=== PATIENT | male | born 1965 | race Caucasian/White ===

== ENCOUNTER 2017-06-20 02:31 | Emergency (ER) | payer BC ==
[2017-06-20] MEDS ORDERED: Nicotine Inhaler* 10 MG AMP ONE ×2 (03:06→18:37)
[2017-06-20] MEDS ORDERED: Mouth Piece, Nicotine* 1 EACH CARTRIDGE ONE (03:06)
[2017-06-20] MEDS ORDERED: Nicotine Inhaler* 10 MG AMP INH ONE (03:07)
[2017-06-20] MEDS ORDERED: Mouth Piece, Nicotine* 1 EACH CARTRIDGE INH PRN (03:07)
--- NOTE | 2017-06-20 03:27 | ED ---
Sukhdeep Veloz Rebecca, scribed for Floyd Hernandez MD on 06/20/17 at 0256 . Psychiatric Complaint - HPI Summary HPI Summary: Pt is a 52 y/o M [employer] who presents to ED for a voluntary MHE. When asked why he presents tonight, he reports "because I had to." he then states he is here because "because I'm drunk and pissed off and somebody called the face painter." According to nurse's triage, the pt posted SIs on Facebook and voiced them to his mother. - History Of Current Complaint Chief Complaint: EDMentalHealth Time Seen by Provider: 06/20/17 02:47 Hx Obtained From: Patient, Medical Records Onset/Duration: Still Present Character: Angry Aggravating Factor(s): Nothing Alleviating Factor(s): Nothing Associated Signs And Symptoms: Positive: Negative Has Suicidal: Reports: Thoughts - Allergies/Home Medications Allergies/Adverse Reactions: Allergies Allergy/AdvReac Type Severity Reaction Status Date / Time No Known Allergies Allergy Verified 11/16/13 07:44 Home Medications: Home Medications Ibuprofen TAB* [Motrin TAB* 800 MG] 800 mg PO Q6H PRN 06/20/17 [History Confirmed 06/20/17] PMH/Surg Hx/FS Hx/Imm Hx Cardiovascular History: Denies: Hx Pacemaker/ICD GI History: Reports: Hx Ulcer - Hx OF , Tx WITH MEDS, OK NOW Musculoskeletal History: Reports: Hx Arthritis - LEFT KNEE, Hx Bursitis Sensory History: Denies: Hx Hearing Aid Psychiatric History: Denies: Hx Panic Disorder - Surgical History Surgery Procedure, Year, and Place: 1998 LT FOOT (SCREWS) [facility]. 2004 PLATE IN RT ANKLE [facility]. 1991 LT INDEX FINGER RE ATTACHMENT [facility]. 1996 VASECTOMY [facility] Hx Anesthesia Reactions: No Infectious Disease History: Denies: Traveled Outside the [place] in Last 30 Days - Family History Known Family History: Positive: Diabetes - Social History Substance Use Type: Reports: None Review of Systems Negative: Fever Positive: Other - SIs All Other Systems Reviewed And Are Negative: Yes Physical Exam Triage Information Reviewed: Yes Vital Signs On Initial Exam: Initial Vitals Temp Pulse Resp BP Pulse Ox 97.6 F 110 16 173/105 99 06/20/17 02:35 06/20/17 02:35 06/20/17 02:35 06/20/17 02:35 06/20/17 02:35 Vital Signs Reviewed: Yes Appearance: Positive: Well-Appearing, No Pain Distress Skin: Positive: Warm Head/Face: Positive: Normal Head/Face Inspection ENT: Positive: Hearing grossly normal Neck: Positive: Supple Respiratory/Lung Sounds: Positive: Breath Sounds Present Cardiovascular: Positive: RRR Abdomen Description: Positive: Nontender, Soft Bowel Sounds: Positive: Present Musculoskeletal: Positive: Strength/ROM Intact Neurological: Positive: Alert, Oriented to Person Place, Time Diagnostics - Vital Signs Vital Signs Temp Pulse Resp BP Pulse Ox 06/20/17 02:35 97.6 F 110 16 173/105 99 - Laboratory Result Diagrams: 06/20/17 03:14 06/20/17 03:14 Lab Statement: Any lab studies that have been ordered have been reviewed, and results considered in the medical decision making process. Course/Dx - Course Assessment/Plan: Pt is a 52 y/o M B[employer] who presents to ED for a voluntary MHE. When asked why he presents tonight, he reports "because I had to." he then states he is here because "because I'm drunk and pissed off and somebody called the face painter." According to nurse's triage, the pt posted SIs on Facebook and voiced them to his mother. Serum alcohol of 320. Pt will be signed out, pending dispositiong, awaiting EtOH metabolism and medical clearance for MHE. Elevated BP noted and advised to f/u with PCP. - Differential Dx/Clinical Impression Provider Diagnosis: Alcohol intoxication Discharge - Discharge Plan Condition: Stable Disposition: OTHER Discharge Disposition Comment: Pt will be signed out, pending dispo, awaiting MHE Referrals: Vincent Perez MD [Primary Care Provider] - The documentation as recorded by the Sukhdeep davalos Rebecca accurately reflects the service I personally performed and the decisions made by me, Floyd Hernandez MD.
[2017-06-20 04:05] LABS: Hematocrit 49 % (42-52); Hemoglobin 16.9 g/dl (14.0-18.0); Mean Corpuscular HGB Conc 34 g/dl (31-36); Mean Corpuscular Hemoglobin 32 pg (27-31); Mean Corpuscular Volume 94 fL (80-94); Mean Platelet Volume 8 um3 (7.4-10.4); Red Blood Count 5.25 10^6/ul (4.0-5.4); Red Cell Distribution Width 14 % (10.5-15); White Blood Count 9.5 10^3/ul (3.5-10.8)
[2017-06-20 04:08] LABS: Urine Bacteria Absent (Absent); Urine Bilirubin Negative (Negative); Urine Glucose 2+(150 mg/dL) (Negative); Urine Nitrite Negative (Negative)
[2017-06-20 04:15] LABS: ALT 17 U/L (7-52); AST 22 U/L (13-39); Albumin 4.4 g/dL (3.2-5.2); Alkaline Phosphatase 62 U/L (34-104); Anion Gap 8 mmol/L (2-11); Blood Urea Nitrogen 3 mg/dL (6-24); CO2 Carbon Dioxide 23 mmol/L (22-32); Calcium 8.6 mg/dL (8.6-10.3); Chloride 97 mmol/L (101-111); EGFR African American 140.6 (>60); EGFR Non-African American 109.4 (>60); Globulin 2.9 g/dL (2-4); Glucose 110 mg/dL (70-100); Potassium 4.1 mmol/L (3.5-5.0); Sodium 128 mmol/L (133-145); Total Protein 7.3 g/dL (6.4-8.9)
[2017-06-20] MEDS ORDERED: Mouth Piece, Nicotine* 1 EACH CARTRIDGE INH ONE (04:15)
[2017-06-20 04:16] LABS: Acetaminophen < 15 mcg/mL; Alcohol 320 mg/dL (<10); Salicylate < 2.50 mg/dL (<30)
[2017-06-20 04:17] LABS: Benzodiazepine Urine Screen None Detected (None Detect)
[2017-06-20 04:25] LABS: TSH (Thyroid Stimulating Horm) 1.39 mcIU/mL (0.34-5.60)
[2017-06-20] MEDS ORDERED: Nicotine Inhaler* 10 MG AMP INH PRN (13:24)
[2017-06-20] MEDS ORDERED: LORazepam TAB(*) 1 MG PO ONE (19:23)
--- NOTE | 2017-06-21 09:43 | PN ---
ED Flex Patient Progress Note Subjective: This is a 52 year-old M who was pending admission transfer to another psychiatric facility secondary to having suicidal ideations. Patient was however intoxicated and angry at this time, states "said some things I shouldn' t have because I was drunk and angry". Patient is currently denying suicidal thoughts now that he has sobered up. He and the rest of mental health staff state they are currently waiting to have a re-evaluation by psychiatrist around 12:00pm today, 06/21/17, to try and be discharged home since he is no longer suicidal. Will recheck pending second evaluation and dispo plan. Pt offers no complaints at this time. Showered and eating/drinking. Slept comfortably. Feels much better after sobering up. Objective: Vitals: Most recent vital signs documented below. General NAD, Alert and oriented x3. Heart: rrr at 88 bpm Lungs: CTA or with rales, rhonchi, wheezing Laboratory: Current laboratory results documented below. Assessment: pending psych re-evaluation Plan: Pending psychiatric consultation to discharge home will follow up daily. Vital Signs Temp Pulse Resp BP Pulse Ox 98.9 F 88 16 148/96 96 06/21/17 08:23 06/21/17 08:23 06/21/17 08:23 06/21/17 08:23 06/21/17 08:23 Pulse 88bpm Lab Results - Entire Visit 06/20/17 06/20/17 06/20/17 03:14 03:14 02:56 WBC 9.5 RBC 5.25 Hgb 16.9 Hct 49 MCV 94 MCH 32 H MCHC 34 RDW 14 Plt Count 245 MPV 8 Neut % (Auto) 58.9 Lymph % (Auto) 27.3 Gilliam % (Auto) 11.1 H Eos % (Auto) 1.4 Baso % (Auto) 1.3 Absolute Neuts (auto) 5.6 Absolute Lymphs (auto) 2.6 Absolute Monos (auto) 1.1 H Absolute Eos (auto) 0.1 Absolute Basos (auto) 0.1 Absolute Nucleated RBC 0.01 Nucleated RBC % 0.1 Sodium 128 L Potassium 4.1 Chloride 97 L Carbon Dioxide 23 Anion Gap 8 BUN 3 L Creatinine 0.75 Est GFR ( Amer) 140.6 Est GFR (Non-Af Amer) 109.4 BUN/Creatinine Ratio 4.0 L Glucose 110 H Calcium 8.6 Total Bilirubin 0.40 AST 22 ALT 17 Alkaline Phosphatase 62 Total Protein 7.3 Albumin 4.4 Globulin 2.9 Albumin/Globulin Ratio 1.5 TSH 1.39 Urine Color Straw Urine Appearance Clear Urine pH 6.0 Ur Specific Revillo 1.004 L Urine Protein Negative Urine Ketones Negative Urine Blood 2+ H Urine Nitrate Negative Urine Bilirubin Negative Urine Urobilinogen Negative Ur Leukocyte Esterase Negative Urine WBC (Auto) Absent Urine RBC (Auto) Trace(0-2/hpf) Ur Squamous Epith Cells Present H Urine Bacteria Absent Urine Glucose 2+(150 mg/dl) H Salicylates < 2.50 Urine Opiates Screen Acetaminophen < 15 Ur Barbiturates Screen Ur Phencyclidine Scrn Ur Amphetamines Screen U Benzodiazepines Scrn Urine Cocaine Screen U Cannabinoids Screen Serum Alcohol 320 H 06/20/17 02:56 WBC RBC Hgb Hct MCV MCH MCHC RDW Plt Count MPV Neut % (Auto) Lymph % (Auto) Gilliam % (Auto) Eos % (Auto) Baso % (Auto) Absolute Neuts (auto) Absolute Lymphs (auto) Absolute Monos (auto) Absolute Eos (auto) Absolute Basos (auto) Absolute Nucleated RBC Nucleated RBC % Sodium Potassium Chloride Carbon Dioxide Anion Gap BUN Creatinine Est GFR ( Amer) Est GFR (Non-Af Amer) BUN/Creatinine Ratio Glucose Calcium Total Bilirubin AST ALT Alkaline Phosphatase Total Protein Albumin Globulin Albumin/Globulin Ratio TSH Urine Color Urine Appearance Urine pH Ur Specific Revillo Urine Protein Urine Ketones Urine Blood Urine Nitrate Urine Bilirubin Urine Urobilinogen Ur Leukocyte Esterase Urine WBC (Auto) Urine RBC (Auto) Ur Squamous Epith Cells Urine Bacteria Urine Glucose Salicylates Urine Opiates Screen None detected Acetaminophen Ur Barbiturates Screen None detected Ur Phencyclidine Scrn None detected Ur Amphetamines Screen None detected U Benzodiazepines Scrn None detected Urine Cocaine Screen None detected U Cannabinoids Screen None detected Serum Alcohol
[2017-06-21 13:54] VITALS: BP 128/78
== END 2017-06-21 12:30 ==
LOC: ED 02:31
DX: F10.129 Alcohol abuse with intoxication, unspecified (principal); Y90.8 Blood alcohol level of 240 mg/100 ml or more; M17.12 Unilateral primary osteoarthritis, left knee; F32.9 Major depressive disorder, single episode, unspecified
CPT/HCPCS: 36415; 80053; 80307; 80320; 80329; 81003; 81015; 84443; 85025; 99283; A9270-GY; G0480

== ENCOUNTER 2024-01-06 15:48 | Observation (INO) ==
[2024-01-06] MEDS: Enoxaparin 40 MG/0.4 ML SYR SUBCUT SCH (18:36)
[2024-01-06] MEDS: Nicotine PATCH 14 MG/24 HR PATCH TRANSDERM SCH (18:36)
[2024-01-07 06:02] LABS: ABS Basophils 0.1 10^3/uL (0.0-0.1); ABS Eosinophils 0.2 10^3/uL (0.0-0.5); ABS Lymphocytes 1.8 10^3/uL (1.0-4.8); ABS Monocytes 0.6 10^3/uL (0.0-1.1); ABS Neutrophils 5.3 10^3/uL (1.5-7.6); ABS Nucleated RBC 0.03 10^3/ul; Eosinophil % 2.5 %; Hematocrit 52.9 % (38-53); Hemoglobin 18.4 g/dL (13.2-16.3); Lymphocyte % 23.1 %; Mean Corpuscular Hemoglobin 32.6 pg (27-33); Mean Corpuscular Hgb Conc 34.8 g/dL (31-36); Mean Corpuscular Volume 93.7 fL (80-97); Mean Platelet Volume 8.1 fL (7.5-11.2); Nucleated Red Blood Cells % 0.3 %/100WBC (0.0-0.8); Platelet Count 195 10^3/uL (150-450); Red Blood Count 5.65 10^6/uL (4.06-5.63); Red Cell Distribution Width 13.7 % (12-17)
[2024-01-07 06:31] LABS: Calcium 8.7 mg/dL (8.6-10.3); Creatinine, Serum 1.04 mg/dL (0.67-1.17); HDL Cholesterol 46.5 mg/dL; Magnesium 2.1 mg/dL (1.9-2.7); Potassium 4.9 mmol/L (3.5-5.0); eGFR CKD-EPI 83.2 (>60)
[2024-01-07 06:45] LABS: TSH Ultra Thyroid Stim Horm 1.02 mcIU/mL (0.34-5.60)
[2024-01-07] MEDS: Aspirin EC 81 mg TAB.EC (enteric coated) PO SCH (08:25)
[2024-01-07 09:49] VITALS: BP 146/80
[2024-01-07] MEDS ORDERED: Sulfur Hexaflouride MICROSPHR 25 MG VIAL ONE (11:42)
== END 2024-01-07 14:06 | disposition home or self-care (01) ==
LOC: ED 15:48 → EDHOLD 15:48 → MEDTELE 19:48
PROVIDERS: ADMIT Internal Medicine; ATTEND Internal Medicine